=== PATIENT | male | born 1950 | race Caucasian/White ===

== ENCOUNTER → 2016-09-19 | Outpatient (CLI) | payer MEDICARE | LOC: HEART 5 08:03 | DX: Z01.818 Encounter for other preprocedural examination (principal); I25.10 Atherosclerotic heart disease of native coronary artery without angina pectoris; R07.9 Chest pain, unspecified; E78.5 Hyperlipidemia, unspecified; I10 Essential (primary) hypertension | CPT/HCPCS: 78452; 93306; A9502; J2785 ==

== ENCOUNTER → 2016-10-04 | Outpatient (CLI) | payer MEDICARE ==
[2016-10-04 15:43] LABS: HEMOGLOBIN 7.1 gm/dl (14.0-17.5); RED BLOOD COUNT 2.53 M/UL (4.20-5.50)
[2016-10-04 16:06] LABS: BUN/CREATININE RATIO 17 (0-10)
== END ==
LOC: LAB 14:41
PROVIDERS: Family Medicine
DX: Z12.5 Encounter for screening for malignant neoplasm of prostate (principal); E11.628 Type 2 diabetes mellitus with other skin complications; E78.5 Hyperlipidemia, unspecified; I10 Essential (primary) hypertension; E55.9 Vitamin D deficiency, unspecified
CPT/HCPCS: 36415; 80053; 80061; 83036; 84439; 84443; 84481; 85027; G0103

== ENCOUNTER → 2020-06-30 | Outpatient (CLI) | payer MEDICARE ==
[~2020-06-30] MED LIST: ALLEGRA-D 12 H1 EACH PO; AZO CRANBERRY1 EACH PO; CALCIUM500 MG PO; CLARITIN10 MG PO; CYMBALTA60 MG PO; FAMOTIDINE40 MG PO; FEOSOL325 MG PO; FERRO-TIME325 MG PO; FLOMAX 0.4 MG0.4 MG PO; FLOMAX0.4 MG PO; GLUCOSE TABS PO; HYDROCHLOROTH12.5 M1 PO; IMDUR ER TAB 3030 MG PO; IMDUR ER TAB 6060 MG PO; IMITREX TAB 2525 MG PO; IMITREX25 MG PO; KLONOPIN1 MG PO; LEVOTHYROXINE25 MCG PO; MOVANTIK25 MG PO; NEURONTIN 300300 MG PO; NITROGLYCERIN0.4 MG PO; OMEPRAZOLE20 MG PO; ONCE DAILY1 EACH PO; PERCOCET 5/325 T1 EA PO; PERCOCET 7.5-31 EACH PO; PLAVIX 75 MG TA75 MG PO; PRIMIDONE50 MG PO; REQUIP0.5 MG PO; RISPERDAL1 MG PO; RISPERIDONE0.5 MG PO; STOOL SOFTENER100 MG PO; TYLENOL 500 MG500 MG PO; VITAMIN B-125000 MC1 PO; VITAMIN D250000 UNIT PO; VITAMIN D3 PO; ZANAFLEX 4 MG TA4 MG PO; ZANAFLEX4 MG PO
[2020-06-30 15:00] LABS: HEMOGLOBIN 15.2 gm/dl (14.0-17.5); RED BLOOD COUNT 4.95 M/UL (4.20-5.50); WHITE BLOOD COUNT 6.7 K/UL (4.5-11.0)
[2020-06-30 15:20] LABS: BUN/CREATININE RATIO 15 (0-10); GAMMA GLUTAMYL TRANSPEPTIDASE 34 U/L (7-64)
== END ==
LOC: LAB 13:26
PROVIDERS: Internal Medicine Hospice and Palliative Medicine
DX: Z51.81 Encounter for therapeutic drug level monitoring (principal); F11.20 Opioid dependence, uncomplicated; Z79.899 Other long term (current) drug therapy
CPT/HCPCS: 36415; 80053; 82977; 85025

== ENCOUNTER → 2020-12-11 | Outpatient (CLI) | payer MEDICARE ==
[2020-12-11 15:22] LABS: HEMOGLOBIN 14.7 gm/dl (14.0-17.5); RED BLOOD COUNT 4.73 M/UL (4.20-5.50); WHITE BLOOD COUNT 6.4 K/UL (4.5-11.0)
[2020-12-11 15:51] LABS: BUN/CREATININE RATIO 20 (0-10)
== END ==
LOC: LAB 14:34
PROVIDERS: Family Medicine
DX: E10.9 Type 1 diabetes mellitus without complications (principal); I10 Essential (primary) hypertension; E03.9 Hypothyroidism, unspecified; Z12.5 Encounter for screening for malignant neoplasm of prostate; E55.9 Vitamin D deficiency, unspecified
CPT/HCPCS: 36415; 80053; 80061; 84439; 84443; 85027; G0103

== ENCOUNTER → 2020-12-20 | Outpatient (CLI) | payer MEDICARE | LOC: ECHO 09:03 | DX: Z01.810 Encounter for preprocedural cardiovascular examination (principal); I25.10 Atherosclerotic heart disease of native coronary artery without angina pectoris | CPT/HCPCS: ECHO; 93306 ==

== ENCOUNTER → 2021-08-28 | Outpatient (CLI) | payer MEDICARE ==
[2021-08-28 15:26] LABS: BUN/CREATININE RATIO 20 (0-10)
== END ==
LOC: LAB 14:05
PROVIDERS: Pain Medicine Interventional Pain Medicine
DX: F11.20 Opioid dependence, uncomplicated (principal); Z79.899 Other long term (current) drug therapy
CPT/HCPCS: 36415; 80053

== ENCOUNTER → 2021-09-12 | Outpatient (CLI) | payer MEDICARE ==
[2021-09-12 10:26] LABS: HEMOGLOBIN 14.8 gm/dl (14.0-17.5); RED BLOOD COUNT 4.8 M/UL (4.20-5.50); WHITE BLOOD COUNT 5.3 K/UL (4.5-11.0)
[2021-09-12 11:17] LABS: BUN/CREATININE RATIO 23 (0-10)
[2021-09-13 08:17] LABS: VITAMIN D, 25-HYDROXY 54.3 ng/mL (30.0-100.0)
[2021-09-13 10:17] LABS: CREATININE, URINE 146.5 mg/dL (Not Estab.)
[2021-09-14 22:09] LABS: TESTOSTERONE, SERUM 304 ng/dL (264-916)
== END ==
LOC: LAB 09:27
PROVIDERS: Family Medicine
DX: E03.9 Hypothyroidism, unspecified (principal); E55.9 Vitamin D deficiency, unspecified; E11.9 Type 2 diabetes mellitus without complications; E29.1 Testicular hypofunction; Z79.899 Other long term (current) drug therapy
CPT/HCPCS: 36415; 80053; 80061; 80307; 82043; 82570; 83735; 84402; 84403; 84439; 84443; 85027

== ENCOUNTER → 2022-01-04 | Outpatient (CLI) | payer MEDICARE | LOC: RAD 11:09 | DX: M54.50 Low back pain, unspecified (principal); G89.29 Other chronic pain | CPT/HCPCS: 72050; 72072; 72110 ==

== ENCOUNTER → 2022-01-07 | Outpatient (CLI) | payer MEDICARE ==
[2022-01-07 17:58] LABS: BUN/CREATININE RATIO 16 (0-10)
== END ==
LOC: LAB 16:09
PROVIDERS: Nurse Practitioner Family
DX: Z79.891 Long term (current) use of opiate analgesic (principal)
CPT/HCPCS: 36415; 80053